=== PATIENT | male | born 1935 | race Caucasian/White ===

== ENCOUNTER 2022-07-18 10:06 | Outpatient (CLI) | payer MEDICARE, BC, SELFPAY | END 2022-07-18 10:07 | disposition home or self-care (01) | PROVIDERS: PCP Family Medicine; Visit Provider Family Medicine | DX: M53.3 Sacrococcygeal disorders, not elsewhere classified (principal) | CPT/HCPCS: 27096; J0702; Q9966 ==

== ENCOUNTER 2024-01-15 10:28 | Outpatient (CLI) | payer MEDICARE, BC, SELFPAY | END 2024-01-15 10:29 | disposition home or self-care (01) | LOC: INJ CL 10:28 | PROVIDERS: PCP Family Medicine; Visit Provider Family Medicine | DX: M54.16 Radiculopathy, lumbar region (principal); M51.369 Other intervertebral disc degeneration, lumbar region without mention of lumbar back pain or lower extremity pain | CPT/HCPCS: 62323; J0702; Q9966 ==